=== PATIENT | male | born 1995 | race Caucasian/White ===

== ENCOUNTER 2021-09-10 17:23 | Emergency (ER) | payer OTHER ==
[~2021-09-10] VITALS: Ht 195.6 cm; Wt 77.3 kg
[2021-09-10 17:47] VITALS: TEMP 100.1
[2021-09-10 18:08] LABS: BASO % 0.4 % (0.0-2.0); GRAN # 6.3 K/mm3 (1.4-6.5); GRAN % 80.5 % (42.2-75.2); HEMATOCRIT 41.9 % (42.0-52.0); HEMOGLOBIN 15.4 g/dl (13.5-18.0); LYMPH # 0.9 K/mm3 (1.2-3.4); LYMPH % 11.1 % (20.0-51.0); MEAN CELL VOLUME 82 fl (80.0-100.0); MEAN CORPUSCULAR HEMOGLOBIN 30 pg (27-31); MEAN CORPUSCULAR HGB CONC 37 g/dl (33.0-37.0); MEAN PLATELET VOLUME 10.2 fl (7.4-10.4); MONO # 0.6 K/mm3 (0.1-0.6); MONO % 7.7 % (1.7-9.3); PLATELET COUNT 223 K/mm3 (130-400); REDCELL DISTRIBUTION WIDTH-CV 12.4 % (11.5-14.5)
[2021-09-10 18:26] LABS: ALBUMIN 4.2 gm/dL (3.5-5.0); BILIRUBIN,TOTAL 1.3 mg/dL (0.2-1.2); CALCIUM 9.1 mg/dL (8.4-10.2); CREATININE, serum 1.25 mg/dL (0.72-1.25); POTASSIUM 3.3 mmol/L (3.5-4.5); TOTAL PROTEIN 7.3 gm/dL (6.2-8.1)
[2021-09-10] MEDS ORDERED: ZOFRAN ODT4 MG PO ×2 (20:59→21:06)
[2021-09-10 21:51] VITALS: BP 127/70; PULSE 85
== END 2021-09-10 21:51 | disposition home or self-care (01) ==
LOC: COL.ER 17:23
PROVIDERS: Personal Emergency Response Attendant
DX: R11.10 Vomiting, unspecified (principal); R19.7 Diarrhea, unspecified
CPT/HCPCS: C9113; J1790; J2270; J2405; J7030